=== PATIENT | male | born 1995 | race Hispanic/Latino ===

== ENCOUNTER 2018-03-06 12:07 | Emergency (ER) | payer SELFPAY ==
[2018-03-06] MEDS ORDERED: KETOROLAC TROMETHAMINE 60 MG/2 ML VIAL ONE (12:41)
[2018-03-06] MEDS ORDERED: DEXAMETHASONE SOD PHOSPHATE 10MG/ML 1ML VIAL ONE (12:41)
== END 2018-03-06 12:51 | disposition home or self-care (01) ==
LOC: EDH 12:07
DX: G24.3 Spasmodic torticollis (principal); J45.909 Unspecified asthma, uncomplicated; Z72.0 Tobacco use
CPT/HCPCS: 96372 ×2; 99284; J1100; J1885